=== PATIENT | male | born 1945 | race Caucasian/White ===

== ENCOUNTER 2022-07-27 14:40 | Emergency (ER) | payer OTHER, SELFPAY ==
[2022-07-27 14:49] VITALS: BP 169/81; PULSE 75; RESP 14; TEMP 36.7; O2SAT 96
--- NOTE | 2022-07-27 15:13 | ED.GENADUL_ITS ---
Discharge Plan Disposition Patient Disposition: Home Discharge Details Clinical Impression: Blurring of vision Primary Care Provider: Unknown,Unknown ED Provider: Lobo Mix Discharge Instructions Additional Instructions: You were seen for episode of blurry vision that occurred this morning. This afternoon your vision appears good with 20/50 in the right eye and 20/30 in the left. I see no worrisome findings on exam and the fundi look ok. Please follow up with your eye doctor next week for an eye check. Return to the ED for neurological changes, worsening headache, double vision, eye pain, other concerns. Medical Decision Making Patient presenting to ED with episode of blurry vision this morning. This episode affected both eyes equally. By history there does not appear to be any evidence to suggest field cut, amaurosis fugax, diplopia. He had no other neurologic changes, headache, eye pain. Vision has returned to baseline. His visual acuity with glasses on his 20/50 in the right eye, 20/30 in the left eye and 20/40 both eyes. No obvious acute pathology visualized on my exam. Patient reassured and asked to follow-up with his eye doctor next week for recheck. Return precautions provided. HPI General Date/Time Provider Initiated Documentation: 07/27/22 15:08 . Information obtained by: patient . HPI Narrative: Patient presents to ED with complaint of episode of blurry vision that occurred this morning and lasted 10 to 15 minutes. He denies any actual loss of vision. He does not describe visual field cuts. He does not describe loss of vision in 1 eye. He was working on his computer when things became blurry. He thought maybe his glasses were dirty and after wiping them clean put them back on. Still had blurry vision but was able to see the entire screen. He was just unable to make out the what was on the screen. Denies any headache, confusion, speech problem, numbness, weakness. Denies having double vision. Denies having eye pain. Vision returned to normal. However, when he visited his son son n oted some bruising under the right eye. Patient reports having a coughing fit prior to this occurring. 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 He has bilateral intraocular lens status post cataract surgery. General Stated Complaint: EyeProblem DEBBIE: 4 Review of Systems Narrative: Per HPI PFSH All Active Problems Blurring of vision (Acute) Surgical History Status post cataract extraction of both eyes with insertion of intraocular lens Social History Smoking/Tobacco Use Status: Never Smoking risk assessment performed?: Yes Alcohol Intake: current Alcohol Intake frequency: holidays/special occasions only Alcohol type: wine Drug use: Never Substance use type: does not use Do you feel safe at home: Yes Do you feel safe in your relationship?: Yes Exam Narrative Exam Narrative: Const: WDWN elderly male in NAD. HEENT: NC/AT. Slight bruising noted below the right eye. Eyes: Normal lids. Normal conjunctiva and sclera. Normal anterior chamber. PERRL and EOMI. Fundiscopic with good visualization of central structures. No evidence of vitreous hemorrhage, normal appearing cup, no obvious retinal detachment appreciated. [facility] per nursing notes. Neck: Supple. Trachea midline. Lungs: Normal respiratory effort. Neuro: A+O x 3. Normal speech, mentation, gait. Cranial nerves II - XII grossly intact. No gross motor or sensory deficit. Ext: No C/C/E. Skin: Warm and dry. Course Vital Signs Vital signs: Vital Signs Temperature 98.1 F 07/27/22 14:49 Pulse 75 07/27/22 14:49 Respiratory Rate 14 07/27/22 14:49 Blood Pressure 169/81 H 07/27/22 14:49 Pulse Oximetry 96 07/27/22 14:49 Temperature 98.1 F 07/27/22 14:49 Temperature Source Oral 07/27/22 14:49 Pulse 75 07/27/22 14:49 Respiratory Rate 14 07/27/22 14:49 Respiratory Effort Normal, Non-Labored 07/27/22 14:57 Blood Pressure 169/81 H 07/27/22 14:49 Blood Pressure Position Sitting 07/27/22 14:49 Pulse Oximetry 96 07/27/22 14:49 Oxygen Delivery Method Room Air 07/27/22 14:49 Oxygen Flow Rate 0 07/27/22 14:49 Pain Level 0 07/27/22 14:49
== END 2022-07-27 15:29 | disposition home or self-care (01) ==
PROVIDERS: Emergency Provider Emergency Medicine
DX: H53.8 Other visual disturbances (principal)
CPT/HCPCS: 99283

== ENCOUNTER 2025-02-05 14:00 | Outpatient (RCR) | payer OTHER, SELFPAY | END 2025-02-07 23:59 | disposition home or self-care (01) | LOC: PRC 14:00 | PROVIDERS: PCP Internal Medicine Pulmonary Disease; Visit Provider Internal Medicine Pulmonary Disease | DX: J44.9 Chronic obstructive pulmonary disease, unspecified (principal); Z51.89 Encounter for other specified aftercare | CPT/HCPCS: 94626 ==

== ENCOUNTER 2025-03-08 14:25 | Outpatient (RCR) | payer OTHER, SELFPAY | END 2025-03-09 23:59 | disposition home or self-care (01) | LOC: PRC 14:25 | PROVIDERS: PCP Internal Medicine Pulmonary Disease; Visit Provider Internal Medicine Pulmonary Disease | DX: J44.89 Other specified chronic obstructive pulmonary disease (principal); Z51.89 Encounter for other specified aftercare | CPT/HCPCS: 94626 ==

== ENCOUNTER 2025-03-10 14:00 | Outpatient (RCR) | payer OTHER, SELFPAY | END 2025-04-09 23:59 | disposition home or self-care (01) | LOC: PRC 14:00 | PROVIDERS: PCP Internal Medicine Pulmonary Disease; Visit Provider Internal Medicine Pulmonary Disease | DX: J44.9 Chronic obstructive pulmonary disease, unspecified (principal); Z51.89 Encounter for other specified aftercare | CPT/HCPCS: 94626 ==

== ENCOUNTER 2025-03-16 03:28 | Outpatient (CLI) | payer OTHER, SELFPAY ==
--- NOTE | 2025-03-17 10:28 | W.PFT ---
Date of service: 03/16/25 Time of Service: 12:50 Pulmonary Function Test Result Indications: COPD Impression 1. Good patient effort was noted. ATS standards for reproducibility were met. 2. Spirometry showed mild obstructive lung disease with an FEV1 of 89% (2.27 L)
== END 2025-03-16 03:29 | disposition home or self-care (01) ==
PROVIDERS: PCP Internal Medicine Pulmonary Disease; Visit Provider Internal Medicine Pulmonary Disease